=== PATIENT | female | born 1950 | race Asian ===

== ENCOUNTER 2017-11-21 13:30 | Outpatient (RCR) | payer OTHER | END 2017-12-06 | disposition home or self-care (01) | LOC: PTY 13:30 | DX: M25.561 Pain in right knee (principal); M25.562 Pain in left knee | CPT/HCPCS: 97110; 97162; G0283 ==

== ENCOUNTER 2017-12-07 08:55 | Outpatient (RCR) | payer OTHER | END 2018-01-06 | disposition home or self-care (01) | LOC: PTY 08:55 | DX: M25.561 Pain in right knee (principal); M25.562 Pain in left knee; G89.29 Other chronic pain | CPT/HCPCS: 97032; 97110; 97140; G0283 ==

== ENCOUNTER 2018-01-08 08:00 | Outpatient (RCR) | payer OTHER | END 2018-02-05 | disposition home or self-care (01) | LOC: PTY 08:00 | DX: M25.561 Pain in right knee (principal); M25.562 Pain in left knee | CPT/HCPCS: 97110; 97140; G0283 ==